=== PATIENT | male | born 1955 | race Caucasian/White ===

== ENCOUNTER 2023-05-03 05:45 | Day surgery (SDC) | payer OTHER ==
[~2023-05-03] VITALS: Ht 170.2 cm; Wt 87.1 kg
[~2023-05-03 05:45] MED LIST: ADULT LOW DOSE81 M1 PO; ATORVASTATIN CA40 MG PO; CLONAZEPAM2 MG PO; OMEGA 3-6-9 CO400 MG PO; TOPROL XL50 M1 PO; ZESTRIL10 M1 PO
[2023-05-03] MEDS ORDERED: PERCOCET 5-3251 EACH PO (08:38)
[2023-05-03] MEDS ORDERED: RECTICARE30 GM TOP (08:39)
== END 2023-05-03 13:15 | disposition home or self-care (01) ==
LOC: CIR.AMB 05:45
PROVIDERS: ATTEND Surgery
DX: K60.3 Anal fistula (principal); R19.4 Change in bowel habit; L72.0 Epidermal cyst; Z20.822 Contact with and (suspected) exposure to COVID-19